=== PATIENT | female | born 1970 | race Caucasian/White ===

== ENCOUNTER 2024-03-29 21:16 | Emergency (ER) | payer SELFPAY ==
[~2024-03-29] VITALS: Ht 165.1 cm; Wt 97.5 kg
[2024-03-29 21:36] VITALS: TEMP 98.4
[2024-03-29 21:53] LABS: BASOPHILS % 0.2 % (0.0-1.0); EOSINOPHILS # (AUTO) 0.1 (0.0-0.4); HEMATOCRIT 38.1 % (34.2-44.1); HEMOGLOBIN 12.2 g/dL (12.0-16.0); LYMPHOCYTES # (AUTO) 1.6 (1.0-3.2); LYMPHOCYTES % 18.8 % (18.0-39.1); MEAN CORPUSCULAR HEMOGLOBIN 28.3 pg (28-32); MEAN CORPUSCULAR VOLUME 88.4 fL (81-99); MONOCYTES # (AUTO) 0.4 (0.2-0.8); MONOCYTES % 5.1 % (4.4-11.3); NEUTROPHILS # (AUTO) 6.3 (2.1-6.9); NEUTROPHILS % 74.7 % (38.7-80.0); PLATELET COUNT 291 x10e3/uL (140-360); RED BLOOD COUNT 4.31 x10e6/uL (3.6-5.1); RED CELL DISTRIBUTION WIDTH 12.7 % (11.7-14.4); WHITE BLOOD COUNT 8.39 x10e3/uL (4.8-10.8)
[2024-03-29 22:10] LABS: ALBUMIN 3.8 g/dL (3.5-5.0); ALBUMIN/GLOBULIN RATIO 1.2 (0.8-2.0); BILIRUBIN,TOTAL 0.2 mg/dL (0.2-1.2); CALCIUM 9.6 mg/dL (8.4-10.2); CREATININE, SERUM 0.84 mg/dL (0.57-1.11); TOTAL PROTEIN 7.1 g/dL (6.5-8.1)
[2024-03-29] MEDS: SODIUM CHLORIDE 0.9% 1000ML 1,000 ML IV STA (22:46)
[2024-03-29 23:03] LABS: TROPONIN I 0.002 ng/mL (0-0.300)
[2024-03-29 23:59] VITALS: BP 213/105
[2024-03-29] MEDS: HYDRALAZINE HCL 20 MG/ML VIAL IV STA (23:59)
[2024-03-30 00:41] VITALS: PULSE 77; RESP 19; O2SAT 100
[2024-03-30] MEDS ORDERED: IRBESARTAN150 MG PO (00:50)
== END 2024-03-30 01:10 | disposition home or self-care (01) ==
LOC: ER 21:36
DX: I16.0 Hypertensive urgency (principal); I10 Essential (primary) hypertension; E78.5 Hyperlipidemia, unspecified; R94.31 Abnormal electrocardiogram [ECG] [EKG]; Z98.0 Intestinal bypass and anastomosis status
CPT/HCPCS: 36415; 70450; 71045; 80053; 82550; 83690; 83880; 84484; 85025; 93005; 99284; J0360; J7030